=== PATIENT | female | born 1955 | race Caucasian/White ===

== ENCOUNTER → 2020-09-29 09:10 | Outpatient (CLI) | payer BC, SELFPAY ==
--- NOTE | 2020-09-29 09:13 | MM_ITS ---
PROCEDURE: MM DIG SCREENING MAMM BI W/CAD Digital Breast Tomosynthesis Included CLINICAL INDICATION: SCREENING There is no personal or family history of breast cancer. COMPARISON: Previous mammograms have been purged TECHNIQUE: Standard CC and MLO images and 3D Tomosynthesis was obtained. R2 CAD reviewed. FINDINGS: Scattered fibroglandular densities are seen in both breasts. There are benign-appearing micro and macrocalcifications in each breast. There is a mole marker in axillary tail left breast. There is no suspicious lesion and no suspicious microcalcifications. IMPRESSION: Fibrofatty parenchyma with no suspicious lesions seen BI-RAD Category: 2 Benign Finding(s) FOLLOW-UP: 1YR 1 Year Follow-up (A letter has been sent to the patient regarding results of the study.) Dictated by: Dr. Jared Kirby MD 10/03/2020 10:20 Dr. Jared Kirby MD in [place] 10/03/2020 10:20
--- NOTE | 2020-09-29 09:13 | XR_ITS ---
PROCEDURE: XR DEXA AXIAL SKELETON CLINICAL HISTORY: POST MENOPAUSAL COMPARISON: No exams were available for comparison FINDINGS: The right hip BMD is 0.984 with a T-score of 1.2. The left hip BMD is 0.940 with a T-score of 0.0. The lumbar spine BMD is 1.130 with a T-score of 0.8. IMPRESSION: This patient is considered normal according to the World Health Organization criteria. Fracture risk is low. Based on these results a follow-up exam is recommended in 2 year. Dictated by: Mandeep Irwin MD 09/29/2020 20:34 Mandeep Irwin MD in [place] 09/30/2020 13:59
== END ==
PROVIDERS: PCP Family Medicine; Visit Provider Family Medicine
DX: Z12.31 Encounter for screening mammogram for malignant neoplasm of breast (principal); Z13.820 Encounter for screening for osteoporosis; Z78.0 Asymptomatic menopausal state
CPT/HCPCS: 77063; 77067; 77080

== ENCOUNTER 2025-04-28 09:26 | Outpatient (CLI) | payer MEDICARE, SELFPAY ==
--- OUTSIDE RECORDS SUMMARY | 2024-04-07 05:00 | XMS_ITS ---
Author Organization [facility] Address [address] [facility] [address] [place] [id number] Care Team Providers Care Gold Leaf Gilder Name Role Phone Olivia Foote Primary Care Provider OLIVIA FOOTE Unavailable Unavailable Allergies No Known Allergies Results Component Value Reference Range Notes Glucose (In-House) Reviewed date:04/09/2024 10:27:10 AM Interpretation:162 Performing Lab: Notes/Report: 162 blood glucose 162 74 - 106 mg/dL Glycohemoglobin A1c (in hous e) Reviewed date:04/09/2024 10:27:10 AM Interpretation:6.9 Performing Lab: Notes/Report: 6.9 glycohemoglobin 6.9% 5 - 6.5 % P-Comprehensive Metabolic Pa ceiclle (CMP) Reviewed date:04/09/2024 10:27:10 AM Interpretation:gluc 148 Performing Lab: Notes/Report: Test performed by [facility] [address] [place] [address] , [address], [place] [address] Juancarlos Mendez MD, Wheel Truing Machine Tender CLIA: [id number] Sodium 136 135-145 mmol/L Potassium 4.0 3.5-5.3 mmol/L Chloride 101 97-108 mmol/L CO2 23 22-32 mmol/L Glucose 148 65-99 mg/dL BUN 22 8-23 mg/dL Creatinine 0.95 0.50-1.00 mg/dL Calcium 10.2 8.6-10.4 mg/dL eGFR by Creatinine 65 >59 mL/min/1.73m2 Protein 6.7 6.0-8.3 g/dL Albumin 4.4 3.5-5.3 g/dL Alkaline Phosphatase 75 35-121 IU/L ALT (SGPT) 22 <5-47 IU/L AST (SGOT) 17 <5-40 IU/L Bilirubin, Total 0.5 <0.2-1.2 mg/dL A/G Ratio 1.9 1.1-2.5 P-Lipid Panel Reviewed date:04/09/2024 10:27:10 AM Interpretation: Normal Performing Lab: Notes/Report: Test performed by [facility] [address] [place] [address] , [address], [place] [address] Juancarlos Mendez MD, Wheel Truing Machine Tender CLIA: [id number] Cholesterol 146 <200 mg/dL Triglycerides 126 <150 mg/dL HDL Cholesterol 49 >39 mg/dL Cholesterol / HDL Ratio 2.98 0.00-4.44 Ratio Non-HDL Cholesterol 97 <130 mg/dL LDL Cholesterol (Calculation) 72 <130 mg/dL LDL Cholesterol Levels* Less than 100 mg/dL Optimal 100 to 129 mg/dL Near Optimal/ Above Optimal 130 to 159 mg/dL Borderline High 160 to 189 mg/dL High 190 mg/dL and above Very High * Categories as recommended by the 2004 ATPIII guidelines LDL/HDL Ratio 1.5 <3.3 Ratio LDL Cholesterol Patient History Test Date: 04/07/2024 LDL Results: 72 Units: mg/dL % Change: - P-TSH reflex to FT4 Reviewed date:04/09/2024 10:27:10 AM Interpretation: Normal Performing Lab: Notes/Report: Test performed by [facility] [address] [place] [address] , [address], [place] [address] Juancarlos Mendez MD, Wheel Truing Machine Tender CLIA: [id number] TSH reflex to FT4 1.74 0.43-5.25 mU/L P-Vitamin D 25-Hydroxy Reviewed date:04/09/2024 10:27:10 AM Interpretation: Normal Performing Lab: Notes/Report: Test performed by [facility] [address] [place] [address] , [address] , [place] [address] Juancarlos Mendez MD, Wheel Truing Machine Tender CLIA: [id number] Vitamin D 25-Hydroxy 38.3 30.0-100.0 ng/mL Interpretation of Vitamin D 25 OH: < 20 ng/mL - Deficiency 20 - 29 ng/mL - Insufficiency 30 - 100 ng/mL - Sufficiency > 100 ng/mL - Super-therapeutic- toxicity may occur above this level. Clinical correlation required. REASON FOR VISIT 6 mos checkup Medications Medication SIG (Take, Route, Frequency, Duration) Notes Start Date End Date Status Lisinopril-hydroCHLOROthiaz tre 10-12.5 MG 1 tablet Orally Once a day; Duration: 90 days Active Rosuvastatin Calcium 10 MG 1 tab(s) oral ly once a day Active metFORMIN HCl ER 750 MG 1 tab(s) orally once a day Active Tylenol 8 Hour Arthritis Pain DIRECTED Active Benefiber - as directed orally 2 times a day 10/08/2022 Active dilTIAZem HCl ER 180 MG 1 capsule Orally Once a day; Duration: 90 days 04/07/2024 Active Vital Signs Blood pressure systolic 122 mm Hg 04/07/20 24 Blood pressure diastolic 82 mm Hg 024 Heart Rate 84 /min 04/07/2024 Height 64.50 in 04/07/2024 Weight 192.6 lbs 04/07/2024 BMI 32.55 kg/m2 04/07/2024 Encounters Encounter Location Date Provider Diagnosis [facility] [address] [facility] [address] [place] [id number] 04/07/2024 Olivia Foote Type 2 diabetes agustin itus without complication, without long-term current use of insulin E11.9 ; HTN (hypertension) I10 ; Dyslipidemia E78.5 ; Vitamin D deficiency E55.9 and Non morbid obesity E66.9 Assessments Encounter Date Diagnosis (ICD Code) Assessment Notes Treatment Notes Treatment Clinical Notes Section Notes 04/07/2024 Type 2 diabetes mellitus without complication, without long-term current use of insulin (ICD-10 - E11.9) 04/07/2024 HTN (hypertension) (ICD-10 - I10) 04/07/2024 Dyslipidemia (ICD-10 - E78.5) 04/07/2024 Vitamin D deficiency (ICD-10 - E55.9) 04/07/2024 Non morbid obesity (ICD-10 - E66.9) Plan Of Treatment Medication Medication Name Sig Start Date Stop Date Notes Lisinopril-hydroCHLOROthiazi de 10-12.5 MG 1 tablet Orally Once a day; Duration: 90 days Rosuvastatin Calcium 10 MG 1 tab(s) orally once a day metFORMIN HCl ER 750 MG 1 tab(s) orally once a day dilTIAZem HCl ER Beads 180 mg TAKE ONE C APSULE BY MOUTH EVERY DAY dilTIAZem HCl ER 180 MG 1 capsule Orally Once a day; Duration: 90 days 04/07/2024 Next Appt Details Follow Up: 6 Months, Reason: Provider Name:Olivia Vail , 10/10/2025 10:00:00 AM, [address] [facility] [address] [facility], [address], [place], [id number], Progress Notes * YOLANDE NAILSOB:1955 ( 70 yo F)Acc No.[id number]:04/07/2024 Progress Notes Patient: ROSITA STEVENS Provider: Katia Foote M.D. :1955 A ge:68 Y S ex:Female Date:04/07/2024 Address:[facility] [address], [place], [id number] Subjective: * Chief Complaints: * 1 . 6 mos checkup. * HPI: C ardiology: 68 year old female presents with c/o Blood Pressure Elevated?Pt here for 6 mo f/u on hypertension, states she is doing well and does not have any concerns.? E ndocrinology: c/o Recent Blood Sugars P t here to f/u on DM 2. * ROS: D ERMATOLOGY: no R alan. n o H jagruti. G ASTROENTEROLOGY: no N ausea. n o V omiting. U ROLOGY: no D ifficulty urinating. n o B lood in urine. * Medical History: H ypertension, Hyperlipidemia, Type 2 Diabetes. * Surgical History: C olonoscopy - Normal 01/23/2012. * Hospitalization/Major Diagno stic Procedure: D enies Past Hospitalization. * Family History: F ather: . M other: alive. 1 brother(s) , 3 sister(s) - healthy. 1 son(s) - healthy. . * Social History: C URRENT TOBACCO USE S moking Status: Patient does NOT smoke. C affeine: yes, frequency:. Marital Status: Single. Past smoking status: no, Smoking status: Does not smoke. Alcohol: no. * Medications: T aking Tylenol 8 Hour Arthritis Pain DIRECTED , Taking Benefiber - Powder as directed orally 2 times a day , Taking metFORMIN HCl ER 750 MG Tablet Extended Release 24 Hour 1 tab(s) orally once a day , Taking Lisinopril- hydroCHLOROthiazide 10-12.5 MG Tablet TAKE ONE TABLET BY MOUTH EVERY DAY , Taking dilTIAZem HCl ER Beads 180 mg Capsule Extended Release 24 Hour TAKE ONE CAPSULE BY MOUTH EVERY DAY , Taking Rosuvastatin Calcium 10 MG Tablet 1 tab(s) orally once a day , Medication List reviewed and reconciled with the patient * Allergies: N .K.D.A. Objective: * Vitals: W t:192.6, Temp:97.8, BP:122/82, HR:84, Nurse:geraldine, Ht: 64.50, BMI:32.55. * Examination: C ardiology: General Appearance: p leasant, NAD. H EENT: u nremarkable. H eart sounds: R RR, normal S1, S2. L ungs: c lear, no rales or wheezes.?Extremities: n o leg edema. P eripheral pulses: 2 plus bilateral. ? Assessment: * Assessment: 1. T ype 2 diabetes mellitus without complication, without long-term current use of insulin - E11.9 (Primary) 2 . H TN (hypertension) - I10 3 . D yslipidemia - E78.5 4 . V itamin D deficiency - E55.9 5 . N on morbid obesity - E66.9 Plan: * Treatment: Value Reference Range A /G Ratio 1.9 1.1-2.5 - * A lbumin 4.4 3.5-5.3 - g/dL * A lkaline Phosphatase 75 35-121 - IU/L * A LT (SGPT) 22 <5-47 - IU/L * A ST (SGOT) 17 <5-40 - IU/L * B ilirubin, Total 0.5 <0.2-1.2 - mg/dL * B UN 22 8-23 - mg/dL * C alcium 10.2 8.6-10.4 - mg/dL * C hloride 101 97-108 - mmol/L * C O2 23 22-32 - mmol/L * C reatinine 0.95 0.50-1.00 - mg/dL * G lucose 148 H 65-99 - mg/dL * P otassium 4.0 3.5-5.3 - mmol/L * S odium 136 135-145 - mmol/L * P rotein 6.7 6.0-8.3 - g/dL * e GFR by Creatinine 65 >59 - mL/min/1.73m2 * Lianet Cormier 04/09/2024 10:27 :05 AM >See phone encounter ?LAB: P-TSH reflex to FT4 (Collection Date & Time - 04/07/2024 11:12 AM)? Normal* Value Reference Range T SH reflex to FT4 1.74 0.43-5.25 - mU/L * Lianet Cormier 04/09/2024 10:27 :05 AM >See phone encounter ?LAB: Glucose (In-House) (Collection Date & Time - 04/07/2024)?162* Value Reference Range b lood glucose 162 74 - 106 mg/dL * Mabel Jones 04/07/2024 9:42:57 AM > [facility] 04/09/2024 10:27:05 AM >See phone encounter ?LAB: Glycohemoglobin A1c (in house) (Collection Date & Time - 04/07/2024)? 6.9* Value Reference Range g lycohemoglobin 6.9% 5 - 6.5 % * Mabel Jones 04/07/2024 9:45:21 AM > Lianet Cormier 04/09/2024 10:27:05 AM >See phone encounter 2.?HTN (hypertension)? Refill Lisinopril-hydroCHLOROthiazide Tablet, 10-12.5 MG, 1 tablet, Orally, Once a day, 90 days, 90Tablet, Refills 1;?Stop dilTIAZem HCl ER Beads Capsule Extended Release 24 Hour, 180 mg, TAKE ONE CAPSULE BY MOUTH EVERY DAY;?Start dilTIAZem HCl ER Capsule Extended Release 24 Hour, 180 MG, 1 capsule, Orally, Once a day, 90 days, 90 Capsule, Refills 1.?LAB: P-Comprehensive Metabolic Panel (CMP) (Collection Date & Time - 04/07/2024 11:12 AM)?gluc 148* Value Reference Range A /G Ratio 1.9 1.1-2.5 - * A lbumin 4.4 3.5-5.3 - g/dL * A lkaline Phosphatase 75 35-121 - IU/L * A LT (SGPT) 22 <5-47 - IU/L * A ST (SGOT) 17 <5-40 - IU/L * B ilirubin, Total 0.5 <0.2-1.2 - mg/dL * B UN 22 8-23 - mg/dL * C alcium 10.2 8.6-10.4 - mg/dL * C hloride 101 97-108 - mmol/L * C O2 23 22-32 - mmol/L * C reatinine 0.95 0.50-1.00 - mg/dL * G lucose 148 H 65-99 - mg/dL * P otassium 4.0 3.5-5.3 - mmol/L * S odium 136 135-145 - mmol/L * P rotein 6.7 6.0-8.3 - g/dL * e GFR by Creatinine 65 >59 - mL/min/1.73m2 * Lianet Cormier 04/09/2024 10:27 :05 AM >See phone encounter 3.?Dyslipidemia? Continue Rosuvastatin Calcium Tablet, 10 MG, 1 tab(s), orally, once a day.?LAB: P-Comprehensive Metabolic Panel (CMP) (Collection Date & Time - 04/07/2024 11:12 AM)?gluc 148* Value Reference Range A /G Ratio 1.9 1.1-2.5 - * A lbumin 4.4 3.5-5.3 - g/dL * A lkaline Phosphatase 75 35-121 - IU/L * A LT (SGPT) 22 <5-47 - IU/L * A ST (SGOT) 17 <5-40 - IU/L * B ilirubin, Total 0.5 <0.2-1.2 - mg/dL * B UN 22 8-23 - mg/dL * C alcium 10.2 8.6-10.4 - mg/dL * C hloride 101 97-108 - mmol/L * C O2 23 22-32 - mmol/L * C reatinine 0.95 0.50-1.00 - mg/dL * G lucose 148 H 65-99 - mg/dL * P otassium 4.0 3.5-5.3 - mmol/L * S odium 136 135-145 - mmol/L * P rotein 6.7 6.0-8.3 - g/dL * e GFR by Creatinine 65 >59 - mL/min/1.73m2 * Lianet Cormier 04/09/2024 10:27 :05 AM >See phone encounter ?LAB: P-Lipid Panel (Collection Date & Time - 04/07/2024 11:12 AM)?Normal* Value Reference Range C holesterol / HDL Ratio 2.98 0.00-4.44 - Ratio * C holesterol 146 <200 - mg/dL * H DL Cholesterol 49 >39 - mg/dL * L DL Cholesterol (Calculation) 72 <130 - mg/d L * L DL/HDL Ratio 1.5 <3.3 - Ratio * N on-HDL Cholesterol 97 <130 - mg/dL * T riglycerides 126 <150 - mg/dL * Lianet Cormier 04/09/2024 10:27 :05 AM >See phone encounter 4.?Vitamin D deficiency?LAB: P-Vitamin D 25-Hydroxy (Collection Date & Time - 04/07/2024 11:12 AM)? Normal* Value Reference Range V itamin D 25-Hydroxy 38.3 30.0-100.0 - ng/mL * Lianet Cormier 04/09/2024 10:27 :05 AM >See phone encounter * Procedure Codes: G 2211 Complex e/[place], [address] GLUCOSE TEST, 12686 GLYCATED HEMOGLOBIN TEST, Modifiers: QW , [address] VENIPUNCT, ROUTINE* * Follow Up: 6 Months * Images: Billing Information: * Visit Code: 92230 Office Visit, Est Pt., Level 4. * Procedure Codes: G2211 Complex e/[place]. [address] GLUCOSE TEST. 17541 GLYCATED HEMOGLOBIN TEST. Modifiers: QW 39996 VENIPUNCT, ROUTINE*. * Electronic signature of Greta Foote MD on 04/28/2025 at 09:28 AM EDT Sign off status: Pending * Provider: Katia Foote M.D. Date: 0 04/07/2024 Generated for Yessi sim/[place]/Doloresitting on: 0 04/28/2025 09:28 AM EDT History and Physical Notes * HPI (History of Present Illness) Category Sub-Category Detail Notes Category Not es Endocrinology Recent Blood Sugars Pt here to f/u on DM 2 Cardiology Blood Pressure Elevated Pt here for 6 mo f/u on hypertension, states she is doing well and does not have any concerns Examination Category Sub-Category Detail Notes Category Not es Cardiology Lungs: clear, no rales or wheezes HEENT: unremarkable Heart sounds: RRR, normal S1, S2 Extremities: no leg edema Peripheral pulses: 2 plus bilateral General Appearance: pleasant, NAD
--- OUTSIDE RECORDS SUMMARY | 2024-10-08 05:00 | XMS_ITS ---
Author Organization [facility] Address [address] [facility] [address] [place] [id number] Care Team Providers Care Automotive Technician Name Role Phone Olivia Foote Primary Care Provider [phone] OLIVIA FOOTE Unavailable Unavailable Allergies No Known Allergies Results Component Value Reference Range Notes Glucose (In-House) Reviewed date:10/08/2024 12:50:28 PM Interpretation: Performing Lab: Notes/Report: blood glucose 157 74 - 106 mg/dL Glycohemoglobin A1c (in hous e) Reviewed date:10/08/2024 12:50:37 PM Interpretation: Performing Lab: Notes/Report: glycohemoglobin 7.7% 5 - 6.5 % REASON FOR VISIT 6 month f/u Medications Medication SIG (Take, Route, Frequency, Duration) Notes Start Date End Date Status Rosuvastatin Calcium 10 MG 1 tab(s) oral ly once a day; Duration: 90 days Active Lisinopril-hydroCHLOROthiaz tre 10-12.5 MG 1 tablet Orally Once a day; Duration: 90 days Active metFORMIN HCl ER 750 MG 2 tab(s) orally once a day; Duration: 90 days Active Tylenol 8 Hour Arthritis Pain DIRECTED Active Benefiber - as directed orally 2 times a day 10/08/2022 Active dilTIAZem HCl ER 180 MG 1 capsule Orally Once a day; Duration: 90 days 04/07/2024 Active Vital Signs Blood pressure systolic 150 mm Hg 10/08/19 25 Blood pressure diastolic 98 mm Hg 025 Heart Rate 111 /min 10/08/2024 Height 64.50 in 10/08/2024 Weight 194 lbs 10/08/2024 BMI 32.78 kg/m2 10/08/2024 Encounters Encounter Location Date Provider Diagnosis [facility] [address] [facility] [address] [facility] [address] [place] [id number] 10/08/2024 Olivia Foote Type 2 diabetes agustin itus without complication, without long-term current use of insulin E11.9 ; HTN (hypertension) I10 ; Dyslipidemia E78.5 ; Pain in right arm M79.601 and Non morbid obesity E66.9 Assessments Encounter Date Diagnosis (ICD Code) Assessment Notes Treatment Notes Treatment Clinical Notes Section Notes 10/08/2024 Type 2 diabetes mellitus without complication, without long-term current use of insulin (ICD-10 - E11.9) 10/08/2024 HTN (hypertension) (ICD-10 - I10) 10/08/2024 Dyslipidemia (ICD-10 - E78.5) 10/08/2024 Pain in right arm (ICD-10 - M79.601) Home exercise program provided to patient 10/08/2024 Non morbid obesity (ICD-10 - E66.9) Plan Of Treatment Medication Medication Name Sig Start Date Stop Date Notes Rosuvastatin Calcium 10 MG 1 tab(s) oral ly once a day; Duration: 90 days Lisinopril-hydroCHLOROthiazi de 10-12.5 MG 1 tablet Orally Once a day; Duration: 90 days metFORMIN HCl ER 750 MG 2 tab(s) orally once a day; Duration: 90 days dilTIAZem HCl ER 180 MG 1 capsule Orally Once a day; Duration: 90 days 04/07/2024 Treatment Notes Assessment Notes Pain in right arm Home exercise progra m provided to patient Next Appt Details Follow Up: 6 Months, Reason: Provider Name:Olivia Vail ry, 10/10/2025 10:00:00 AM, [address] [facility] [address] [facility], [address], [place], [id number], Progress Notes * YOLANDE NAILSOB:1955 ( 70 yo F)Acc No.[id number]:10/08/2024 Progress Notes Patient: ROSITA STEVENS Provider: Katia Foote M.D. :1955 A ge:69 Y S ex:Female Date:10/08/2024 Address:[facility] [address], [place], [id number] Subjective: * Chief Complaints: * 1 . 6 month f/u. * HPI: C ardiology: 69 year old female presents with c/o Blood Pressure Elevated?Pt here for 6 mo f/u on hypertension, states she is doing well and does not have any concerns.? c/o Hyperlipidemia P t is fasting today. * ROS: D ERMATOLOGY: no R alan. G ASTROENTEROLOGY: no N ausea. n o [...] orally 2 times a day , Taking Lisinopril-hydroCHLOROthiazide 10-12.5 MG Tablet 1 tablet Orally Once a day , Taking dilTIAZem HCl ER 180 MG Capsule Extended Release 24 Hour 1 capsule Orally Once a day , Taking metFORMIN HCl ER 750 MG Tablet Extended Release 24 Hour 1 tab(s) orally once a day , Taking Rosuvastatin Calcium 10 MG Tablet 1 tab(s) orally once a day , Medication List reviewed and reconciled with the patient * Allergies: N .K.D.A. Objective: * Vitals: W t:194, Temp:97.8, BP:150/98, HR:111, Nurse:geraldine, Ht: 64.50, Repeat BP:126/74, BMI:32.78. * Examination: C ardiology: General Appearance: p [...] . D yslipidemia - E78.5 4 . P ain in right arm - M79.601 5 . N on morbid obesity - E66.9 Plan: * Treatment: Value Reference Range b lood glucose 157 74 - 106 mg/dL * Mabel Jones 10/08/2024 9:41:21 AM > , Provider reviewed results while patient in office. ?LAB: Glycohemoglobin A1c (in house) (Collection Date & Time - 10/08/2024)* Value Reference Range g lycohemoglobin 7.7% 5 - 6.5 % * Mabel Jones 10/08/2024 9:44:49 AM > , Provider reviewed results while patient in office. 2.?HTN (hypertension)? Refill Lisinopril-hydroCHLOROthiazide Tablet, 10-12.5 MG, 1 tablet, Orally, Once a day, 90 days, 90Tablet, Refills 1;?Refill dilTIAZem HCl ER Capsule Extended Release 24 Hour, 180 MG, 1 capsule, Orally, Once a day, 90 days, 90 Capsule, Refills 1.??3.?Dyslipidemia? Refill Rosuvastatin Calcium Tablet, 10 MG, 1 tab(s), orally, once a day, 90 days, 90 Tablet, Refills 1.??4.?Pain in right arm? Notes: Home exercise program provided to patient?? * Procedure Codes: G 2211 Complex e/[place], [address] CAPILLARY BLOOD DRAW, 90360 GLUCOSE TEST, 82388 GLYCATED HEMOGLOBIN TEST, Modifiers: QW , 3051F HG A1C>EQUAL 7.0%<8.0%, G8752 MOST RECENT SYSTOLIC BP < 140MM HG, G8754 MOST RECENT DIASTOLIC BP < 90MM HG * Follow Up: 6 Months * Images: Billing Information: * Visit Code: 75115 Office Visit, Est Pt., Level 4. * Procedure Codes: G2211 Complex e/[place]. [address] CAPILLARY BLOOD DRAW. 36764 GLUCOSE TEST. 28662 GLYCATED HEMOGLOBIN TEST. Modifiers: QW 3051F HG A1C>EQUAL 7.0%<8.0%. G8752 MOST RECENT SYSTOLIC BP < 140MM HG. G8754 MOST RECENT DIASTOLIC BP < 90MM HG. * Electronic signature of Greta Foote MD on 04/28/2025 at 09:28 AM EDT Sign off status: Pending * Provider: Katia Foote M.D. Date: 0 10/08/2024 Generated for Yessi sim/[place]/Doloresitting on: 0 04/28/2025 09:28 AM EDT History and Physical Notes * HPI (History of Present Illness) Category Sub-Category Detail Notes Category Not es Cardiology Blood Pressure Elevated Pt here for 6 mo f/u on hypertension, states she is doing well and does not have any concerns Hyperlipidemia Pt is fasting today Examination Category Sub-Category Detail Notes Category Not es Cardiology Lungs: clear, no rales or wheezes HEENT: unremarkable Heart sounds: RRR, normal S1, S2 Extremities: no leg edema Peripheral pulses: 2 plus bilateral General Appearance: pleasant, NAD
--- OUTSIDE RECORDS SUMMARY | 2025-04-08 05:00 | XMS_ITS ---
Author Organization [facility] Address [address] [facility] [address] [place]argas [phone] Care Team Providers Care Cleaner Signs Name Role Phone Olivia Foote Primary Care Provider OLIVIA FOOTE Unavailable Unavailable Allergies No Known Allergies Results Component Value Reference Range Notes Glucose (In-House) Reviewed date:04/11/2025 01:28:41 PM Interpretation:161 Performing Lab: Notes/Report: 161 blood glucose 161 74 - 106 mg/dL Glycohemoglobin A1c (in hous e) Reviewed date:04/11/2025 01:28:41 PM Interpretation:7.2 Performing Lab: Notes/Report: 7.2 glycohemoglobin 7.2% 5 - 6.5 % P-Comprehensive Metabolic [place] (CMP) Reviewed date:04/11/2025 01:28:41 PM Interpretation: Performing Lab: Notes/Report: Test performed by [facility] [address] [place] [address] , [address], [place] [address] Juancarlos Mendez MD, Cardroom Drawing Runner CLIA: [id number] Sodium 141 135-145 mmol/L Potassium 4.3 3.5-5.3 mmol/L Chloride 105 97-108 mmol/L CO2 23 20-32 mmol/L Glucose 144 65-99 mg/dL BUN 27 8-23 mg/dL Creatinine 0.90 0.50-1.00 mg/dL Calcium 10.0 8.6-10.4 mg/dL eGFR by Creatinine 69 >59 mL/min/1.73m2 Protein 6.9 6.0-8.3 g/dL Albumin 4.5 3.5-5.3 g/dL Alkaline Phosphatase 68 35-121 IU/L ALT (SGPT) 19 <5-47 IU/L AST (SGOT) 14 <5-40 IU/L Bilirubin, Total 0.5 <0.2-1.2 mg/dL A/G Ratio 1.9 1.1-2.5 P-Lipid Panel Reviewed date:04/11/2025 01:28:41 PM Interpretation: Performing Lab: Notes/Report: Test performed by [facility] [address] [place] [address] , [address], [place] [address] Juancarlos Mendez MD, Cardroom Drawing Runner CLIA: [id number] Cholesterol 146 <200 mg/dL Triglycerides 127 <150 mg/dL HDL Cholesterol 51 >39 mg/dL Cholesterol / HDL Ratio 2.86 0.00-4.44 Ratio Non-HDL Cholesterol 95 <130 mg/dL LDL Cholesterol (Calculation) 70 <130 mg/dL LDL Cholesterol Levels* Less than 100 mg/dL Optimal 100 to 129 mg/dL Near Optimal/ Above Optimal 130 to 159 mg/dL Borderline High 160 to 189 mg/dL High 190 mg/dL and above Very High * Categories as recommended by the 2004 ATPIII guidelines LDL/HDL Ratio 1.4 <3.3 Ratio LDL Cholesterol Patient History Test Date: 04/07/2024 LDL Results: 72 Units: mg/dL % Change: - Test Date: 04/08/2025 LDL Results: 70 Units: mg/dL % Change: -2% P-TSH reflex to FT4 Reviewed date:04/11/2025 01:28:41 PM Interpretation: Performing Lab: Notes/Report: Test performed by [facility] [address] [place], [place] [address] [place] , [place] [address] Juancarlos Mendez MD, Cardroom Drawing Runner CLIA: [id number] TSH reflex to FT4 1.40 0.43-5.25 mU/L P-Microalbumin/Creatinine, R andom Urine Sample Reviewed date:04/11/2025 01:28:41 PM Interpretation: Performing Lab: Notes/Report: Test performed by [facility] [address] [place] [address] , [address], [place] [address] Juancarlos Mendez MD, Cardroom Drawing Runner CLIA: [id number] Albumin/Creatinine Ratio, Urine 10 0-30 ug/m g Microalbumin, Urine, Random 2.6 Creatinine, Urine 248.6 P-Vitamin D 25-Hydroxy Reviewed date:04/11/2025 01:28:41 PM Interpretation: Performing Lab: Notes/Report: Test performed by [facility] [address] [place], [place] [address] [place] , [address], [place] [address] Juancarlos Mendez MD, Cardroom Drawing Runner CLIA: [id number] Vitamin D 25-Hydroxy 40.5 30.0-100.0 ng/mL Interpretation of Vitamin D 25 OH: < 20 ng/mL - Deficiency 20 - 29 ng/mL - Insufficiency 30 - 100 ng/mL - Sufficiency > 100 ng/mL - Super-therapeutic- toxicity may occur above this level. Clinical correlation required. REASON FOR VISIT 6 month f/u Medications Medication SIG (Take, Route, Frequency, Duration) Notes Start Date End Date Status Lisinopril-hydroCHLOROthiaz tre 10-12.5 MG 1 tablet Orally Once a day; Duration: 90 days Active metFORMIN HCl ER 750 MG 2 tab(s) orally once a day; Duration: 90 days Active Rosuvastatin Calcium 10 MG 1 tab(s) oral ly once a day; Duration: 90 days Active dilTIAZem HCl ER 180 MG 1 capsule Orally Once a day; Duration: 90 days Active Tylenol 8 Hour Arthritis Pain DIRECTED Active Benefiber - as directed orally 2 times a day 10/08/2022 Active Problems Problem Type SNOMED Code ICD Code Onset Dates Problem Status W/U Status Risk Notes Problem Type 2 diabetes mellitus with other specified complication, unspecified whether jail insulin use (E11.69) Active confirmed Problem BMI 30+ - obesity (655390853) BMI 32.0-32.9,adult (Z68.32) Active confirmed Vital Signs Blood pressure systolic 142 mm Hg 04/08/20 25 Blood pressure diastolic 94 mm Hg 025 Heart Rate 99 /min 04/08/2025 Height 64.50 in 04/08/2025 Weight 192.6 lbs 04/08/2025 BMI 32.55 kg/m2 04/08/2025 Encounters Encounter Location Date Provider Diagnosis [facility] [address] [facility] [address] [phone] 04/08/2025 Olivia Foote Type 2 diabetes agustin itus without complication, without long-term current use of insulin E11.9 ; Dyslipidemia E78.5 ; HTN (hypertension) I10 ; Vitamin D deficiency E55.9 ; Breast cancer screening by mammogram Z12.31 ; Colon cancer screening Z12.11 ; Osteoporosis screening Z13.820 ; Type 2 diabetes mellitus with other specified complication, unspecified whether intermediate manager insulin use E11.69 ; Non morbid obesity E66.9 and BMI 32.0-32.9,adult Z68.32 Assessments Encounter Date Diagnosis (ICD Code) Assessment Notes Treatment Notes Treatment Clinical Notes Section Notes 04/08/2025 Type 2 diabetes mellitus without complication, without long-term current use of insulin (ICD-10 - E11.9) 04/08/2025 Dyslipidemia (ICD-10 - E78.5) 04/08/2025 HTN (hypertension) (ICD-10 - I10) 04/08/2025 Vitamin D deficiency (ICD-10 - E55.9) 04/08/2025 Breast cancer screening by mammogram (ICD-10 - Z12.31) 04/08/2025 Colon cancer screening (ICD-10 - Z12.11) 04/08/2025 Osteoporosis screening (ICD-10 - Z13.820) 04/08/2025 Type 2 diabetes mellitus with other specified complication, unspecified whether intermediate manager insulin use (ICD-10 - E11.69) 04/08/2025 Non morbid obesity (ICD-10 - E66.9) 04/08/2025 BMI 32.0-32.9,adult (ICD-10 - Z68.32) Plan Of Treatment Medication Medication Name Sig Start Date Stop Date Notes Lisinopril-hydroCHLOROthiazi de 10-12.5 MG 1 tablet Orally Once a day; Duration: 90 days metFORMIN HCl ER 750 MG 2 tab(s) orally once a day; Duration: 90 days Rosuvastatin Calcium 10 MG 1 tab(s) oral ly once a day; Duration: 90 days dilTIAZem HCl ER 180 MG 1 capsule Orally Once a day; Duration: 90 days Pending Test Test Name Order Date Mammogram 04/08/2025 Cologuard 04/08/2025 Next Appt Details Follow Up: 6 Months, Reason: Provider Name:Olivia Vail ry, 10/10/2025 10:00:00 AM, [address] [facility], [address] , [place], [place], [phone], Progress Notes * YOLANDE NAILSOB:1955 ( 70 yo F)Acc No.[id number]:04/08/2025 Progress Notes Patient: ROSITA STEVENS Provider: Katia Foote M.D. :1955 A ge:69 Y S ex:Female Date:04/08/2025 Address:[address], [id number] Subjective: * Chief Complaints: * 1 . 6 month f/u. * HPI: C ardiology: 69 year old female presents with c/o Blood Pressure Elevated?Pt here for 6 mo check up on hypertension. Pt states she is doing well and does not have any concerns. c/o Hyperlipidemia P t is fasting today. E ndocrinology: c/o Recent Blood Sugars P t here to check up on DM 2. Pt states that she does not check blood sugar at home. * ROS: D ERMATOLOGY: no R alan. [...] . * Social History: C URRENT TOBACCO USE: No S moking Status: Patient does NOT smoke. C affeine: yes, frequency:. Marital Status: Single. Past smoking status: no, Smoking status: Does not smoke. Alcohol: no. * Medications: T aking Tylenol 8 Hour Arthritis Pain DIRECTED , Taking Benefiber - Powder as directed orally 2 times a day , Taking Rosuvastatin Calcium 10 MG Tablet 1 tab(s) orally once a day , Taking metFORMIN HCl ER 750 MG Tablet Extended Release 24 Hour 2 tab(s) orally once a day , Taking dilTIAZem HCl ER 180 MG Capsule Extended Release 24 Hour 1 capsule Orally Once a day , Taking Lisinopril-hydroCHLOROthiazide 10-12.5 MG Tablet 1 tablet Orally Once a day , Medication List reviewed and reconciled with the patient * Allergies: N .K.D.A. Objective: * Vitals: W t: 192.6, Temp: 97.7, BP: 142/94, HR: 99, Nurse: geraldine, Ht: 64.50, Repeat BP: 118/78, BMI:32.55. * Examination: C ardiology: General Appearance: p leasant, NAD. H EENT: u nremarkable. H eart sounds: R RR, normal S1, S2. L ungs: c lear, no rales or wheezes.?Extremities: n o leg edema. P eripheral pulses: 2 plus bilateral. ? Assessment: * Assessment: 1. T ype 2 diabetes mellitus without complication, without long-term current use of insulin - E11.9 (Primary) 2 . D yslipidemia - E78.5 3 . H TN (hypertension) - I10 4 . V itamin D deficiency - E55.9 5 . B reast cancer screening by mammogram - Z12.31 6 . C olon cancer screening - Z12.11 ? 7 . O steoporosis screening - Z13.820 8 . T ype 2 diabetes mellitus with other specified complication, unspecified whether intermediate manager insulin use - E11.69 9. N on morbid obesity - E66.9 1 0. B RI 32.0-32.9,adult - Z68.32 ? Plan: * Treatment: Value Reference Range A /G Ratio 1.9 1.1-2.5 - * A lbumin 4.5 3.5-5.3 - g/dL * A lkaline Phosphatase 68 35-121 - IU/L * A LT (SGPT) 19 <5-47 - IU/L * A ST (SGOT) 14 <5-40 - IU/L * B ilirubin, Total 0.5 <0.2-1.2 - mg/dL * B UN 27 H 8-23 - mg/dL * C alcium 10.0 8.6-10.4 - mg/dL * C hloride 105 97-108 - mmol/L * C O2 23 20-32 - mmol/L * C reatinine 0.90 0.50-1.00 - mg/dL * G lucose 144 H 65-99 - mg/dL * P otassium 4.3 3.5-5.3 - mmol/L * S odium 141 135-145 - mmol/L * P rotein 6.9 6.0-8.3 - g/dL * e GFR by Creatinine 69 >59 - mL/min/1.73m2 * Olivia Foote 04/09/2025 09:32:57 PM EDT > Lab results are satisfactory, sent to to inform. Ashly Vital 04/11/2025 01:27:50 PM EDT > pt informed. ?LAB: P-TSH reflex to FT4 (Collection Date & Time - 04/08/2025 08:41 AM)* Value Reference Range T SH reflex to FT4 1.40 0.43-5.25 - mU/L * Olivia Foote 04/09/2025 09:32:57 PM EDT > Lab results are satisfactory, sent to to inform. Ashly Vital 04/11/2025 01:27:50 PM EDT > pt informed. ?LAB: P-Microalbumin/Creatinine, Random Urine Sample (Collection Date & Time - 04/08/2025 08:41 AM)* Value Reference Range A lbumin/Creatinine Ratio, Urine 10 0-30 - ug /mg * C reatinine, Urine 248.6 - mg/dL * M icroalbumin, Urine, Random 2.6 - mg/dL * Olivia Foote 04/09/2025 09:32:57 PM EDT > Lab results are satisfactory, sent to to inform. Ashly Vital 04/11/2025 01:27:50 PM EDT > pt informed. ?LAB: Glucose (In-House) (Collection Date & Time - 04/08/2025)?161* Value Reference Range b lood glucose 161 74 - 106 mg/dL * Mabel Jones 04/08/2025 12:10: 25 PM EDT > Olivia Foote 04/09/2025 09:32:57 PM EDT > Lab results are satisfactory, sent to to inform. Ashly Vital 04/11/2025 01:27:50 PM EDT > pt informed. ?LAB: Glycohemoglobin A1c (in house) (Collection Date & Time - 04/08/2025)? 7.2* Value Reference Range g lycohemoglobin 7.2% 5 - 6.5 % * Mabel Jones 04/08/2025 12:10: 41 PM EDT > Olivia Foote 04/09/2025 09:32:57 PM EDT > Lab results are satisfactory, sent to to inform. Ashly Vital 04/11/2025 01:27:50 PM EDT > pt informed. 2.?Dyslipidemia? Refill Rosuvastatin Calcium Tablet, 10 MG, 1 tab(s), orally, once a day, 90 days, 90, Refills 1. ?LAB: P-Comprehensive Metabolic Panel (CMP) (Collection Date & Time - 04/08/2025 08:41 AM)* Value Reference Range A /G Ratio 1.9 1.1-2.5 - * A lbumin 4.5 3.5-5.3 - g/dL * A lkaline Phosphatase 68 35-121 - IU/L * A LT (SGPT) 19 <5-47 - IU/L * A ST (SGOT) 14 <5-40 - IU/L * B ilirubin, Total 0.5 <0.2-1.2 - mg/dL * B UN 27 H 8-23 - mg/dL * C alcium 10.0 8.6-10.4 - mg/dL * C hloride 105 97-108 - mmol/L * C O2 23 20-32 - mmol/L * C reatinine 0.90 0.50-1.00 - mg/dL * G lucose 144 H 65-99 - mg/dL * P otassium 4.3 3.5-5.3 - mmol/L * S odium 141 135-145 - mmol/L * P rotein 6.9 6.0-8.3 - g/dL * e GFR by Creatinine 69 >59 - mL/min/1.73m2 * Olivia Foote 04/09/2025 09:32:57 PM EDT > Lab results are satisfactory, sent to to inform. Ashly Vital 04/11/2025 01:27:50 PM EDT > pt informed. ?LAB: P-Lipid Panel (Collection Date & Time - 04/08/2025 08:41 AM)* Value Reference Range C holesterol / HDL Ratio 2.86 0.00-4.44 - Ratio * C holesterol 146 <200 - mg/dL * H DL Cholesterol 51 >39 - mg/dL * L DL Cholesterol (Calculation) 70 <130 - mg/d L * L DL/HDL Ratio 1.4 <3.3 - Ratio * N on-HDL Cholesterol 95 <130 - mg/dL * T riglycerides 127 <150 - mg/dL * Olivia Foote 04/09/2025 09:32:57 PM EDT > Lab results are satisfactory, sent to to inform. Ashly Vital 04/11/2025 01:27:50 PM EDT > pt informed. 3.?HTN (hypertension)? Refill dilTIAZem HCl ER Capsule Extended Release 24 Hour, 180 MG, 1 capsule, Orally, Once a day, 90days, 90, Refills 1;?Refill Lisinopril-hydroCHLOROthiazide Tablet, 10-12.5 MG, 1 tablet, Orally, Once a day, 90 days, 90, Refills 1.?LAB: P-Comprehensive Metabolic Panel (CMP) (Collection Date & Time - 04/08/2025 08:41 AM)* Value Reference Range A /G Ratio 1.9 1.1-2.5 - * A lbumin 4.5 3.5-5.3 - g/dL * A lkaline Phosphatase 68 35-121 - IU/L * A LT (SGPT) 19 <5-47 - IU/L * A ST (SGOT) 14 <5-40 - IU/L * B ilirubin, Total 0.5 <0.2-1.2 - mg/dL * B UN 27 H 8-23 - mg/dL * C alcium 10.0 8.6-10.4 - mg/dL * C hloride 105 97-108 - mmol/L * C O2 23 20-32 - mmol/L * C reatinine 0.90 0.50-1.00 - mg/dL * G lucose 144 H 65-99 - mg/dL * P otassium 4.3 3.5-5.3 - mmol/L * S odium 141 135-145 - mmol/L * P rotein 6.9 6.0-8.3 - g/dL * e GFR by Creatinine 69 >59 - mL/min/1.73m2 * Olivia Foote 04/09/2025 09:32:57 PM EDT > Lab results are satisfactory, sent to to inform. Ashly Vital 04/11/2025 01:27:50 PM EDT > pt informed. 4.?Vitamin D deficiency?LAB: P-Vitamin D 25-Hydroxy (Collection Date & Time - 04/08/2025 08:41 AM) * Value Reference Range V itamin D 25-Hydroxy 40.5 30.0-100.0 - ng/mL * Olivia Foote 04/09/2025 09:32:57 PM EDT > Lab results are satisfactory, sent to to inform. Ashly Vital 04/11/2025 01:27:50 PM EDT > pt informed. 5.?Breast cancer screening by mammogram?Imaging: Mammogram* Prefers a n Apr.Ta Teresa alarcon 04/08/2025 09:46:03 AM EDT > faxed to [facility] Scheduling 6.?Colon cancer screening?LAB: Cologuard* Ashly Vital 04/20/2025 05: 04:40 PM EDT > order faxed * Procedure Codes: G 2211 Complex e/[place], [address] GLUCOSE TEST, 67484 GLYCATED HEMOGLOBIN TEST, Modifiers: QW , 3051F HG A1C>EQUAL 7.0%<8.0%, 1036F TOBACCO NON-USER, G8950 PREHTN/HTN BP DOC INDCD F/U DOC, G8752 MOST RECENT SYSTOLIC BP < 140MM HG, G8754 MOST RECENT DIASTOLIC BP < 90MM HG * Follow Up: 6 Months * Images: Drawing:[facility] 2024 Billing Information: * Visit Code: 24820 Office Visit, Est Pt., Level 4. * Procedure Codes: G2211 Complex e/[place]. [address] GLUCOSE TEST. 79424 GLYCATED HEMOGLOBIN TEST. Modifiers: QW 3051F HG A1C>EQUAL 7.0%<8.0%. 1036F TOBACCO NON-USER. G8950 PREHTN/HTN BP DOC INDCD F/U DOC. G8752 MOST RECENT SYSTOLIC BP < 140MM HG. G8754 MOST RECENT DIASTOLIC BP < 90MM HG. * Electronic signature of Greta Foote MD on 04/28/2025 at 09:29 AM EDT Sign off status: Pending * Provider: Katia Foote M.D. Date: 0 04/08/2025 Generated for Yessi sim/[place]/eTransmitting on: 0 04/28/2025 09:29 AM EDT History and Physical Notes * HPI (History of Present Illness) Category Sub-Category Detail Notes Category Not es Endocrinology Recent Blood Sugars Pt here to mery allisonk up on DM 2. Pt states that she does not check blood sugar at home Cardiology Blood Pressure Elevated Pt here for 6 mo check up on hypertension. Pt states she is doing well and does not have any concerns Hyperlipidemia Pt is fasting today Examination Category Sub-Category Detail Notes Category Not es Cardiology Lungs: clear, no rales or wheezes HEENT: unremarkable Heart sounds: RRR, normal S1, S2 Extremities: no leg edema Peripheral pulses: 2 plus bilateral General Appearance: pleasant, NAD
--- NOTE | 2025-04-28 09:29 | XR_ITS ---
FINAL REPORT CLINICAL HISTORY: screening COMPARISON: 09/29/2020 FINDINGS: Using L1-4, the bone mineral density of the spine is 1.165 g/cm2, corresponding to T-score of 1.1, within normal limits. Previously was 1.130 with a T-score of 0.8 Using the left hip, the bone mineral density of the total hip is 0.902 g/cm2, corresponding to a T-score of -0.3, within normal limits. Previously was 0.940 with a T-score of 0.0 Using the right hip, the bone mineral density of the femoral neck is 0.871 g/cm2, corresponding to a T-score of 0.2, within normal limits. Previously was 0.984 with a T-score of 1.2. FRAX not reported because all T-scores at or above -1.0 NOTE: T-score: Standard deviation compared with peak bone mass of young adult mean. *Following the recommendations of the International Society of Bone densitometry, classification of hip BMD is based on the lower of two T-scores; total hip or femoral neck. IMPRESSION: Normal bone mineral density of the lumbar spine and hips. Reviewed, Interpreted and Dictated by Ric Abel MD Transcribed by Marina Frost Authenticated and [facility]
--- NOTE | 2025-04-28 09:29 | MM_ITS ---
PROCEDURE INFORMATION: Exam: MG Bilateral Screening 3D Mammography Exam date and time: 04/28/2025 9:57 AM Age: 70 years old Clinical indication: Screening examination TECHNIQUE: Imaging protocol: Bilateral Screening tomosynthesis and 2D mammography including computer-aided detection (CAD) when performed. COMPARISON: MG MM DIG SCREENING MAMM BI W/CAD 09/29/2020 9:16 AM FINDINGS: MAMMOGRAPHY: Breast composition: The breasts are almost entirely fatty. Mass: None. Architectural distortion: None. Calcifications: No suspicious calcifications. Asymmetric density: None. Skin thickening: None. Axillary adenopathy: None. IMPRESSION: No mammographic evidence of malignancy. Annual screening is recommended unless otherwise clinically indicated. ASSESSMENT: BI-RADS Category 1: Negative.
--- OUTSIDE RECORDS SUMMARY | 2025-04-28 09:30 | XMS_ITS | Patient Health Record ---
Author Organization [facility] Address [address] [facility] [address] ELIZABETH Vargas [id number] Care Team Providers Care Mail Processing Associate Name Role Phone Robert Foote Primary Care Provider ROBERT FOOTE Unavailable Unavailable Allergies No Known Allergies Results Component Value Reference Range Notes Glucose (In-House) Reviewed date:10/08/2024 12:50:28 PM Interpretation: Performing Lab: Notes/Report: blood glucose 157 74 - 106 mg/dL Glycohemoglobin A1c (in hous e) Reviewed date:10/08/2024 12:50:37 PM Interpretation: Performing Lab: Notes/Report: glycohemoglobin 7.7% 5 - 6.5 % Glucose (In-House) Reviewed date:04/11/2025 01:28:41 PM Interpretation:161 Performing Lab: Notes/Report: 161 blood glucose 161 74 - 106 mg/dL Glycohemoglobin A1c (in hous e) Reviewed date:04/11/2025 01:28:41 PM Interpretation:7.2 Performing Lab: Notes/Report: 7.2 glycohemoglobin 7.2% 5 - 6.5 % P-Com[facility] [place] ([facility]) Reviewed date:04/11/2025 01:28:41 PM Interpretation: Performing Lab: Notes/Report: Test performed by [facility] [address] [place] [id number] , [address], [place] [address] Juancarlos Mendez MD, [employer] CLIA: [id number] Sodium 141 135-145 mmol/L Potassium 4.3 3.5-5.3 [...] Interpretation: Performing Lab: Notes/Report: Test performed by [facility], [address] , [address] , [place] [address] Juancarlos Mendez MD, [employer] CLIA: [id number] Cholesterol 146 <200 mg/dL Triglycerides 127 <150 [...] Interpretation: Performing Lab: Notes/Report: Test performed by [facility] [address] [place] [address] , [place] [address] Juancarlos Mendez MD, [employer] CLIA: [id number] TSH reflex to FT4 1.40 0.43-5.25 mU/L P-Microalbumin/Creatinine, R andom Urine Sample Reviewed date:04/11/2025 01:28:41 PM Interpretation: Performing Lab: Notes/Report: Test performed by [facility] [address] [place] [address] , [place] [address] Juancarlos Mendez MD, [employer] CLIA: [id number] Albumin/Creatinine Ratio, Urine 10 0-30 ug/m g Microalbumin, Urine, Random 2.6 Creatinine, Urine 248.6 P-Vitamin D 25-Hydroxy Reviewed date:04/11/2025 01:28:41 PM Interpretation: Performing Lab: Notes/Report: Test performed by [facility] [address] [place] [address] , [address], [place] [address] Juancarlos Mendez MD, [employer] CLIA: [id number] Vitamin D 25-Hydroxy 40.5 30.0-100.0 ng/mL Interpretation of Vitamin D 25 OH: < 20 ng/mL - Deficiency 20 - 29 ng/mL - Insufficiency 30 - 100 ng/mL - Sufficiency > 100 ng/mL - Super-therapeutic- toxicity may occur above this level. Clinical correlation required. Medications Medication SIG (Take, Route, Frequency, Duration) [...] orally 2 times a day 10/08/2022 Active Immunizations Vaccine Route Administration Date Status Comme nts xFluzone Intradermal (18-64yrs)-trivalent ID Intradermal 06/03/2013 Administered PNEUMOVAX 23 VACCINE IM Intramuscular 09/24/2021 Administe red Fluzone Quad (6months&older) IM Intramuscular 08/01/2016 Administered Fluzone PF Quad (6-35 months) Unknown 06/23/2020 Administered Fluzone High Dose (65yr and older) Unknown 04/27/2021 Administered COVID 19 Moderna Unknown 10/26/2020 Administered COVID 19 Moderna Unknown 11/23/2020 Administered COVID 19 Moderna Unknown 06/29/2021 Administered Problems Problem Type SNOMED Code ICD Code Onset Dates Problem Status W/U Status Risk Notes Problem Overweight (709115408) Overweight (278.00) Active confirmed Problem Hyperglycemia (85010169) Hyperglycemia (R73.9) Active confirmed Problem Hypertension (39984897) HTN (hypertension) (I10) Active confirmed Problem Vitamin D deficiency (84560201) Vitamin D deficiency (E55.9) Active confirmed Problem BMI 30+ - obesity (049716490) BMI 32.0-32.9,adult (Z68.32) Active confirmed Problem Lymphedema (03567375) Lymphedema (I89.0) Active confirmed Problem Constipation (15960371) Constipation, unspecified constipation type (K59.00) Active confirmed Problem Dyslipidemia (904672068) Dyslipidemia (E78.5) Active confirmed Problem Type II diabetes mellitus without complication (949341421) Type 2 diabetes mellitus without complication, without long-term current use of insulin (E11.9) Active confirmed Problem Obesity (088233461) Non morbid obesity (E66.9) Active confirmed Problem Type 2 diabetes mellitus with other specified complication, unspecified whether filler leaf cutter long insulin use (E11.69) Active confirmed Vital Signs Heart Rate 99 /min 04/08/2025 Blood pressure diastolic 94 mm Hg 04/08/2025 Height 64.50 in 04/08/2025 Blood pressure systolic 142 mm Hg 04/08/2025 Weight 192.6 lbs 04/08/2025 BMI 32.55 kg/m2 04/08/2025 Encounters Encounter Location Date Provider [facility] [address] [id number] 10/08/2024 Robert Foote Type 2 diabetes agustin itus without complication, without long-term current use of insulin E11.9 ; HTN (hypertension) I10 ; Dyslipidemia E78.5 ; Pain in right arm M79.601 and Non morbid obesity E66.9 [facility] [address] [id number] 04/08/2025 Robert Foote Type 2 diabetes agustin itus without complication, without long-term current use of insulin E11.9 ; Dyslipidemia E78.5 ; HTN (hypertension) I10 ; Vitamin D deficiency E55.9 ; Breast cancer screening by mammogram Z12.31 ; Colon cancer screening Z12.11 ; Osteoporosis screening Z13.820 ; Type 2 diabetes mellitus with other specified complication, unspecified whether filler leaf cutter long insulin use E11.69 ; Non morbid obesity E66.9 and BMI 32.0-32.9,adult Z68.32 Assessments Encounter Date Diagnosis (ICD Code) Assessment Notes Treatment Notes Treatment Clinical Notes Section Notes 10/08/2024 HTN (hypertension) (ICD-10 - I10) 10/08/2024 Type 2 diabetes mellitus without complication, without long-term current use of insulin (ICD-10 - E11.9) 04/08/2025 Dyslipidemia (ICD-10 - E78.5) 04/08/2025 Type 2 diabetes mellitus without complication, without long-term current use of insulin (ICD-10 - E11.9) 04/08/2025 HTN (hypertension) (ICD-10 - I10) 10/08/2024 Dyslipidemia (ICD-10 - E78.5) 10/08/2024 Pain in right arm (ICD-10 - M79.601) Home exercise program provided to patient 04/08/2025 Vitamin D deficiency (ICD-10 - E55.9) 04/08/2025 Breast cancer screening by mammogram (ICD-10 - Z12.31) 10/08/2024 Non morbid obesity (ICD-10 - E66.9) 04/08/2025 Colon cancer screening (ICD-10 - Z12.11) 04/08/2025 Osteoporosis screening (ICD-10 - Z13.820) 04/08/2025 Type 2 diabetes mellitus with other specified complication, unspecified whether filler leaf cutter long insulin use (ICD-10 - E11.69) 04/08/2025 Non morbid obesity (ICD-10 - E66.9) 04/08/2025 BMI 32.0-32.9,adult (ICD-10 - Z68.32) Plan Of Treatment Pending Test Test Name Order Date DEXA Hip and Spine 04/08/2025 Mammogram 04/08/2025 Cologuard 04/08/2025 Next Appt Details Provider Name:Robert Vail ry, 10/10/2025 10:00:00 AM, [address], [address], [place], [place], [id number], Insurance Providers Payer Name Payer Address Payer Phone Subscriber Number Group Number Insured Name Patient Relationship to Insured Coverage Start Date Coverage End Date MEDICARE PART B [address] [address] Clarence jaquezELIZABETH [address] [id number] ROSITA NAILS Self - patient is the insured [facility] [address] [place] [address] [phone] [id number] ROSITA NAILS Self - patient is the insured Medical (General) History Medical History History ICD Code Hypertension Hyperlipidemia Type 2 Diabetes Surgical History Surgery Date(Month/Year) Colonoscopy - Normal 01/23/2012
== END 2025-04-28 23:59 | disposition home or self-care (01) ==
LOC: RAD 09:26
PROVIDERS: PCP Family Medicine; Visit Provider Family Medicine
DX: Z12.31 Encounter for screening mammogram for malignant neoplasm of breast (principal); M81.0 Age-related osteoporosis without current pathological fracture; R92.313 Mammographic fatty tissue density, bilateral breasts; Z78.0 Asymptomatic menopausal state
CPT/HCPCS: 77063; 77067; 77080